=== PATIENT | male | born 1990 | race African-American/Black ===

== ENCOUNTER 2017-04-10 23:01 | Emergency (ER) | payer SELFPAY ==
[~2017-04-10] VITALS: Ht 182.9 cm; Wt 150.0 kg
[2017-04-10 23:03] VITALS: BP 167/90; PULSE 97; RESP 12; TEMP 99.2; O2SAT 98
[2017-04-10] MEDS ORDERED: diphenhydrAMINE HCL 50 MG/ML VIAL IM ONE (23:30)
[2017-04-10] MEDS ORDERED: DEXAMETHASONE SOD PHOS 20 MG/5 ML VIAL IM ONE (23:30)
--- NOTE | 2017-04-10 23:30 | PD ---
HPI Chief Complaint: Allergic/Adverse Reaction Time Seen by Provider: 23:24 Travel History International Travel<30 days: No Contact w/Intl Traveler<30days: No Traveled to known affect area: No History of Present Illness HPI 26-year-old healthy male here with complaint of allergic reaction. Starting yesterday evening patient developed a rash on the upper extremities, torso. Itching. Describes this as welts. He has not taken anything for this at home, states it has not gotten any better but also has not gotten any worse. No throat itching, swelling, difficulty breathing. He denies any new lotions, soaps, detergents, medications, etc. PFSH Past Medical History Medical History: Denies Significant Hx Past Surgical History Appendectomy: Yes Social History Alcohol Use: Yes Tobacco Use: No Substance Use: Yes (marijuana) Allergies-Medications (Allergen,Severity, Reaction): Coded Allergies: Penicillin (Verified Allergy, Severe, Anaphylaxis, 04/10/17) Reported Meds & Prescriptions Reported Meds & Active Scripts Active No Active Prescriptions or Reported Medications Review of Systems Except as stated in HPI: all other systems reviewed are Neg Physical Exam Narrative GENERAL: Obese [place] male in no acute distress SKIN: Diffuse urticaria the torso and upper extremities HEAD: Normocephalic. EYES: Pupils equal and round. No scleral icterus. No injection or drainage. ENT: No nasal bleeding or discharge. Mucous membranes pink and moist. 2+ tonsils without erythema, exudate, palatal petechiae. Posterior pharynx is otherwise clear. NECK: Supple without stridor CARDIOVASCULAR: Regular rate and rhythm. RESPIRATORY: No accessory muscle use. Clear to auscultation. Breath sounds equal bilaterally. GASTROINTESTINAL: Obese MUSCULOSKELETAL: Normal gait NEUROLOGICAL: Awake and alert. Normal speech. PSYCHIATRIC: Appropriate mood and affect; insight and judgment normal. Data Data Last Documented VS Vital Signs Date Time Temp Pulse Resp B/P Pulse Ox O2 Delivery O2 Flow Rate FiO2 04/10/17 23:29 16 99 Room Air 04/10/17 23:03 99.2 97 167/90 Orders Diphenhydramine Inj (Benadryl Inj) (04/10/17 23:30) Dexamethasone Inj (Decadron Inj) (04/10/17 23:30) MDM Medical Decision Making Medical Screen Exam Complete: Yes Emergency Medical Condition: Yes Medical Record Reviewed: Yes Differential Diagnosis 26-year-old male here for allergic reaction. Exam is consistent with urticaria. No evidence of anaphylaxis. Narrative Course Patient given IM Benadryl, Decadron and discharged home with conservative management Diagnosis Primary Impression: Urticaria Additional Impression: Allergic reaction Qualified Code: T78.40XA - Allergic reaction, initial encounter Referrals: Primary Care Physician as needed Additional Instructions: Benadryl as needed for itching. You may also apply [id number] hydrocortisone Med/Other Pt SpecificInfo: No Change to Meds Scripts No Active Prescriptions or Reported Meds Disposition: DISCHARGE HOME Condition: Stable Ludy Parisi MD Apr 10, 2017 23:30
== END 2017-04-11 00:13 | disposition home or self-care (01) ==
LOC: NEPE 23:01
DX: L50.9 Urticaria, unspecified (principal); T78.40XA Allergy, unspecified, initial encounter
CPT/HCPCS: 96372; 99284; J1100; J1200

== ENCOUNTER 2017-07-28 08:02 | Emergency (ER) | payer SELFPAY ==
[~2017-07-28] VITALS: Ht 175.3 cm; Wt 149.5 kg
[2017-07-28 08:04] VITALS: BP 146/79; PULSE 118; RESP 20; TEMP 102.5; O2SAT 96
[2017-07-28] MEDS ORDERED: SODIUM CHLOR 0.9% 1000 ML INJ 1,000 ML IV ONE (08:30)
[2017-07-28] MEDS ORDERED: ACETAMINOPHEN 325 MG TAB PO ONE (08:30)
--- NOTE | 2017-07-28 08:33 | PD ---
HPI Chief Complaint: Cold / Flu Symptoms Time Seen by Provider: 08:22 Travel History International Travel<30 days: No Contact w/Intl Traveler<30days: No Traveled to known affect area: No History of Present Illness HPI 27-year-old male came to the emergency room with history of fever that started yesterday along with body ache and headaches. Patient has a temperature 102.5. His is here was giving majority of the history. He is otherwise a healthy person. No known sick contacts. Patient is not coughing. This morning he did vomit once. His last dose of Tylenol was last night at 7 PM. No history of diarrhea. PFSH Past Medical History Narrative Medical List of his past medical, surgical, social and family history is reviewed from the nursing note. Medical History: Denies Significant Hx Diminished Hearing: No Past Surgical History Appendectomy: Yes Social History Alcohol Use: No Tobacco Use: No Substance Use: Yes (marijuana) Allergies-Medications (Allergen,Severity, Reaction): Coded Allergies: penicillin G (Unverified Allergy, Severe, Anaphylaxis, 07/28/17) Comments List of his allergies reviewed from the nursing note. Reported Meds & Prescriptions Reported Meds & Active Scripts Active No Active Prescriptions or Reported Medications Narrative Medication List of his home medications reviewed from the nursing note. Review of Systems Except as stated in HPI: all other systems reviewed are Neg General / Constitutional: Positive: Fever HENT: Positive: Headaches Musculoskeletal: Positive: Myalgias Physical Exam Narrative GENERAL: Obese, awake, answering questions, moderate distress SKIN: Focused skin assessment warm/dry. HEAD: Atraumatic. Normocephalic. EYES: Pupils equal and round. No scleral icterus. No injection or drainage. ENT: No nasal bleeding or discharge. Mucous membranes pink and moist. NECK: Trachea midline. No JVD. CARDIOVASCULAR: Regular rate and rhythm. No murmur appreciated. RESPIRATORY: No accessory muscle use. Clear to auscultation. Breath sounds equal bilaterally. GASTROINTESTINAL: Abdomen soft, non-tender, nondistended. Hepatic and splenic margins not palpable. MUSCULOSKELETAL: No obvious deformities. No clubbing. No cyanosis. No edema. NEUROLOGICAL: Awake and alert. No obvious cranial nerve deficits. Motor grossly within normal limits. Normal speech. PSYCHIATRIC: Appropriate mood and affect; insight and judgment normal. Data Data Last Documented VS Orders Orders Complete Blood Count With Diff (07/28/17 08:08) Comprehensive Metabolic Panel (07/28/17 08:08) Lactic Acid Sepsis Protocol (07/28/17 08:08) Blood Culture (07/28/17 08:08) Influenzae A/B Antigen (07/28/17 08:08) Acetaminophen (Tylenol) (07/28/17 08:30) Sodium Chlor 0.9% 1000 Ml Inj (Ns 1000 M (07/28/17 08:30) Chest, Single Ap (07/28/17 ) Ed Discharge Order (07/28/17 09:52) Labs Laboratory Tests Test 07/28/17 08:20 White Blood Count 8.2 TH/MM3 Red Blood Count 4.69 MIL/MM3 Hemoglobin 14.0 GM/DL Hematocrit 40.0 % Mean Corpuscular Volume 85.4 FL Mean Corpuscular Hemoglobin 29.8 PG Mean Corpuscular Hemoglobin Concent 34.9 % Red Cell Distribution Width 12.9 % Platelet Count 219 TH/MM3 Mean Platelet Volume 7.4 FL CBC Comment AUTO DIFF Differential Total Cells Counted 100 Neutrophils % (Manual) 69 % Band Neutrophils % 1 % Lymphocytes % 23 % Monocytes % 4 % Eosinophils % 2 % Basophils % 1 % Neutrophils # (Manual) 5.7 TH/MM3 Differential Comment FINAL DIFF MANUAL Platelet Estimate NORMAL Platelet Morphology Comment NORMAL Red Cell Morphology Comment NORMAL Blood Urea Nitrogen 15 MG/DL Creatinine 1.25 MG/DL Random Glucose 107 MG/DL Total Protein 7.9 GM/DL Albumin 3.0 GM/DL Calcium Level 8.6 MG/DL Alkaline Phosphatase 81 U/L Aspartate Amino Transf (AST/SGOT) 34 U/L Alanine Aminotransferase (ALT/SGPT) 41 U/L Total Bilirubin 0.7 MG/DL Sodium Level 138 MEQ/L Potassium Level 4.2 MEQ/L Chloride Level 106 MEQ/L Carbon Dioxide Level 24.1 MEQ/L Anion Gap 8 MEQ/L Estimat Glomerular Filtration Rate 83 ML/MIN Lactic Acid Level 0.9 mmol/L [facility] Medical Decision Making Medical Screen Exam Complete: Yes Emergency Medical Condition: Yes Medical Record Reviewed: Yes Differential Diagnosis Sepsis, pneumonia, viral infection, influenza Narrative Course 9:54 AM blood test results of back and within normal limits including the lactic acid and chemistry. Influenza is negative. Patient was given Motrin and 1 L of IV fluid bolus. I'm comfortable discharging him home at this point. In my opinion he has viral illness. Procedures EKG Prior to Arrival: No Diagnosis Primary Impression: Fever Qualified Codes: R50.9 - Fever, unspecified Additional Impression: Viral illness Referrals: Primary Care Physician 2 days Additional Instructions: Take Tylenol/Motrin/Advil/ibuprofen for fever. Drink lots of fluid. Please return to the ER if the condition worsens or any other new concerns. Given the fact that it's probably a viral infection he should start feeling better in another day or 2. Infection is contagious. Hands use mask is coughing and continue washing hands. Med/Other Pt SpecificInfo: No Meds Exist/No RX given Scripts No Active Prescriptions or Reported Meds Disposition: 01 DISCHARGE HOME Condition: Stable Arie Treviño MD Jul 28, 2017 08:33
[2017-07-28 08:42] LABS: MEAN CELL VOLUME 85.4 FL (80.0-100.0); MEAN CORPUSCULAR HEMOGLOBIN 29.8 PG (27.0-34.0); MEAN CORPUSCULAR HGB CONC 34.9 % (32.0-36.0); PLATELET COUNT 219 TH/MM3 (150-450); RED BLOOD COUNT 4.69 MIL/MM3 (4.50-5.90); RED CELL DISTRIBUTION WIDTH 12.9 % (11.6-17.2); WHITE BLOOD COUNT 8.2 TH/MM3 (4.0-11.0)
[2017-07-28 08:44] LABS: HEMO FLAGS AUTO DIFF
[2017-07-28 09:04] LABS: ALT (GPT) 41 U/L (12-78)
--- NOTE | 2017-07-28 09:05 | RADRPT ---
EXAM DATE/TIME: 07/28/2017 08:48 [facility] COMPARISON: No previous studies available for comparison. INDICATIONS : Body aches, nausea, shortness of breath. MEDICAL HISTORY : None. SURGICAL HISTORY : None. ENCOUNTER: Initial ACUITY: 2 days PAIN SCORE: 7/10 LOCATION: Bilateral chest FINDINGS: A single view of the chest demonstrates the lungs to be symmetrically aerated without evidence of mas s, infiltrate or effusion. The cardiomediastinal contours are unremarkable. Osseous structures are intact. CONCLUSION: 1. No acute cardiopulmonary disease. Presley Frazier MD on July 28, 2017 at 9:03 Board Certified Radiologist. This report was verified electronically.
[2017-07-28 09:07] LABS: ALKALINE PHOSPHATASE 81 U/L (45-117); ANION GAP 8 MEQ/L (5-15); AST (GOT) 34 U/L (15-37); BICARBONATE 24.1 MEQ/L (21.0-32.0); BLOOD UREA NITROGEN 15 MG/DL (7-18); CHLORIDE 106 MEQ/L (98-107); GLOMERULAR FILTRATION RATE 83 ML/MIN (>89); SODIUM (NA) 138 MEQ/L (136-145); TOTAL BILIRUBIN ADULT 0.7 MG/DL (0.2-1.0)
[2017-07-28 09:10] LABS: POTASSIUM 4.2 MEQ/L (3.5-5.1)
[2017-07-28 09:20] LABS: BANDS 1 % (0-6); BASOPHILS 1 % (0-2); EOSINOPHILS 2 % (0-4); NEUTROPHIL # MANUAL DIFF 5.7 TH/MM3 (1.8-7.7); PLATELET ESTIMATE SMEAR NORMAL (NORMAL); PLATELET MORPHOLOGY NORMAL (NORMAL); POLYS (SEG NEUTROPHILS) 69 % (16-70); SCAN/DIFF FINAL DIFF MANUAL; WBC DIFF SAMPLE 100
== END 2017-07-28 10:44 | disposition home or self-care (01) ==
LOC: NEPC 08:02
DX: B34.9 Viral infection, unspecified (principal); F12.90 Cannabis use, unspecified, uncomplicated
CPT/HCPCS: 71010; 80053; 83605; 85007; 85027; 87040; 87804; 96360; 96361; 99284; J7030